=== PATIENT | female | born 1995 | race Caucasian/White ===

== ENCOUNTER 2017-11-15 10:39 | Emergency (ER) | payer OTHER ==
[~2017-11-15] VITALS: Ht 160 cm; Wt 83.0 kg
[2017-11-15] MEDS ORDERED: normal saline 1000ML IV soln IV ONE (12:00)
[2017-11-15] MEDS ORDERED: ipratropium/albuterol 3ml nebule NEB ONE (12:05)
[2017-11-15 12:28] LABS: BASOPHILS % (AUTO) 0.3 % (0-1); EOSINOPHILS # (AUTO) 0.3 X10'3 (0-0.9); EOSINOPHILS % (AUTO) 3.1 % (0-6); HEMATOCRIT 39.6 % (35.0-45.0); HEMOGLOBIN 13.7 g/dl (12.0-16.0); LYMPHOCYTES # (AUTO) 0.9 X10'3 (1.1-4.8); LYMPHOCYTES % (AUTO) 10.2 % (21-51); MEAN CORPUSCULAR HEMOGLOBIN 31.4 PG (27.0-31.0); MEAN CORPUSCULAR HGB CONC 34.6 % (33.0-36.5); MEAN CORPUSCULAR VOLUME 90.9 FL (78-98); MEAN PLATELET VOLUME 7.9 FL (7.4-10.4); MONOCYTES # (AUTO) 0.5 X10'3 (0-0.9); MONOCYTES % (AUTO) 5.5 % (2-12); NEUTROPHILS # (AUTO) 7.5 X10'3 (1.8-7.7); NEUTROPHILS % (AUTO) 80.9 % (42-75); PLATELET COUNT 261 X10'3 (140-440); RED BLOOD COUNT 4.35 X10'6 (4.20-5.60); RED CELL DISTRIBUTION WIDTH 12.9 % (11.5-14.5); WHITE BLOOD COUNT 9.3 X10'3 (4.5-11.0)
[2017-11-15] MEDS ORDERED: CefTRIAXone 2gm/D5W 50ml 50 ML IV ONE (12:40)
[2017-11-15 12:44] LABS: ALANINE AMINOTRANSFERASE 25 U/L (12-78); ALBUMIN 3.7 G/DL (3.4-5.0); ALKALINE PHOSPHATASE 83 IU/L (46-116); ANION GAP 12 (8-16); ASPARTATE AMINO TRANSFERASE 14 U/L (10-37); BILIRUBIN,TOTAL 0.4 MG/DL (0.1-1.0); BLOOD UREA NITROGEN 14 MG/DL (7-18); BUN/CREATININE RATIO 15.7 (6.6-38.0); CALCIUM 9.1 MG/DL (8.5-10.1); CHLORIDE 107 MMOL/L (99-107); CREATININE 0.89 MG/DL (0.40-0.90); GLUCOSE 97 MG/DL (70-104); POTASSIUM 4.1 MMOL/L (3.5-5.1); SODIUM 142 MMOL/L (135-145); TOTAL CARBON DIOXIDE 23.1 MMOL/L (24-32); TOTAL PROTEIN 7.5 G/DL (6.4-8.2); eGFR 79 ML/MIN
[2017-11-15] MEDS ORDERED: ALBU6.7H INH (12:46)
[2017-11-15] MEDS ORDERED: GUAI473S11 PO (12:46)
[2017-11-15] MEDS ORDERED: CEPH-571 PO (12:46)
[2017-11-15 15:10] VITALS: BP 117/89
== END 2017-11-15 15:12 | disposition home or self-care (01) ==
LOC: ER 10:40
DX: J18.9 Pneumonia, unspecified organism (principal); J45.909 Unspecified asthma, uncomplicated; Z79.899 Other long term (current) drug therapy
CPT/HCPCS: 36415; 71045; 80053; 83605; 85025; 87040; 93005; 94640; 94760; 96361; 96365; 99285; J0696; J7030

== ENCOUNTER 2019-10-08 20:11 | Emergency (ER) | payer OTHER ==
[~2019-10-08] VITALS: Ht 160 cm; Wt 82.2 kg
[~2019-10-08 20:11] MED LIST: ALBU6.7H9 INH; CEPH-571 PO
[2019-10-08 20:53] LABS: BASOPHILS % (AUTO) 0.2 % (0-1); EOSINOPHILS # (AUTO) 0.2 X10'3 (0-0.9); EOSINOPHILS % (AUTO) 1.3 % (0-6); HEMATOCRIT 40.9 % (35.0-45.0); HEMOGLOBIN 13.9 g/dl (12.0-16.0); LYMPHOCYTES # (AUTO) 1.8 X10'3 (1.1-4.8); LYMPHOCYTES % (AUTO) 13.2 % (21-51); MEAN CORPUSCULAR HEMOGLOBIN 31.6 PG (27.0-31.0); MEAN CORPUSCULAR VOLUME 92.9 FL (78-98); MEAN PLATELET VOLUME 7.8 FL (7.4-10.4); MONOCYTES # (AUTO) 0.7 X10'3 (0-0.9); MONOCYTES % (AUTO) 5.3 % (2-12); NEUTROPHILS # (AUTO) 11.1 X10'3 (1.8-7.7); PLATELET COUNT 311 X10'3 (140-440); WHITE BLOOD COUNT 13.8 X10'3 (4.5-11.0)
[2019-10-08 21:02] LABS: URINE HCG NEGATIVE (NEG)
[2019-10-08 21:03] LABS: CLARITY,URINE TURBID (Clear); COLOR,URINE BROWN (Yellow)
[2019-10-08 21:09] LABS: ALANINE AMINOTRANSFERASE 21 U/L (12-78); ALBUMIN/GLOBULIN RATIO 1.1 (1.1-1.5); ALKALINE PHOSPHATASE 89 IU/L (46-116); ANION GAP 9 (8-16); ASPARTATE AMINO TRANSFERASE 13 U/L (10-37); BILIRUBIN,TOTAL 0.3 MG/DL (0.1-1.0); BLOOD UREA NITROGEN 16 MG/DL (7-18); BUN/CREATININE RATIO 15.7 (6.6-38.0); CALCIUM 8.8 MG/DL (8.5-10.1); CHLORIDE 107 MMOL/L (99-107); CREATININE 1.02 MG/DL (0.40-0.90); GLUCOSE 92 MG/DL (70-104); LIPASE 114 U/L (73-393); SODIUM 142 MMOL/L (135-145); TOTAL CARBON DIOXIDE 26.2 MMOL/L (24-32); TOTAL PROTEIN 7.5 G/DL (6.4-8.2); eGFR 67 ML/MIN
[2019-10-08 21:12] LABS: BACTERIA,URINE NONE SEEN /HPF (Neg); RBC,URINE TNTC /HPF (0-2); UA COLLECTION TYPE CLN CATCH MIDSTREAM; WBC,URINE 50-100 /HPF (0-4)
[2019-10-08 21:13] LABS: SQUAMOUS EPITHELIAL CELL,UR FEW /LPF (FEW); YEAST MANY /HPF (NEGATIVE)
[2019-10-08] MEDS ORDERED: normal saline 1000ML IV soln IVB ONE (21:25)
[2019-10-08] MEDS ORDERED: CefTRIAXone/D5W-Rocephin 1gm 50 ML IV ONE (21:25)
[2019-10-08] MEDS ORDERED: CEPH500C5 PO (22:14)
[2019-10-08] MEDS ORDERED: diphenhydrAMINE 25mg capsule PO ONE (22:40)
--- NOTE | 2019-10-08 22:53 | NUR ---
PATIENT DISCHARGED, NO QUESTIONS OF CONERNS AT THAT TIME. NOTIFIED BY REGISTRATION THAT PATIENT WAS HAVING ADDITIONAL COMPLAINTS IN LOBBY. BROUGHT PATIENT BACK TO ROOM FOR ASSESSMENT OF C/O CP AND COUGH. MD AT BEDSIDE ORDERED EKG AND 25MG PO BENADRYL AT THIS TIME.
[2019-10-08 22:54] VITALS: BP 146/87
[2019-10-08] MEDS ORDERED: NITR100C6 PO (22:56)
--- NOTE | 2019-10-08 23:24 | NUR ---
PATIENT'S SYMPTOM RESOLVED FOLLOWING BENADRYL ADMINISTRATION. VITALS STABLE AT DISCHARGE. PATIENT'S RX CHANGED BY MD. PATIENT VERBALIZED UNDERSTANDING OF D/C INSTRUCTIONS AND S/S OF WORSENING CONDITION
== END 2019-10-08 23:29 | disposition home or self-care (01) ==
LOC: ER 20:11
DX: E86.0 Dehydration (principal); N39.0 Urinary tract infection, site not specified; J45.909 Unspecified asthma, uncomplicated; Z87.01 Personal history of pneumonia (recurrent); Z88.1 Allergy status to other antibiotic agents
CPT/HCPCS: 36415; 80053; 81001; 81025; 83690; 85025; 87077; 87088; 87186; 93005; 96365; 99285; J0696; J7030; Q0163; 96361